=== PATIENT | female | born 1970 | race American Indian/Alaskan Native ===

== ENCOUNTER 2019-02-28 09:02 | Day surgery (SDC) | payer OTHER ==
[~2019-02-28 09:02] MED LIST: NACL 0.9% 1000 ML 1,000 ML IV SCH
[2019-02-28] MEDS ORDERED: DIPRIVAN 10 MG/ML IV ONE ×2 (10:59→11:00)
--- NOTE | 2019-02-28 11:12 | Anesthesia Consultation ---
Anesthesia Consult and Med Hx Date of service: 02/28/19 - Airway Anesthetic Teeth Evaluation: Good ROM Head & Neck: Adequate Mental/Hyoid Distance: Adequate Mallampati Class: Class II Intubation Access Assessment: Good - Pulmonary Exam CTA: Yes - Cardiac Exam Cardiac Exam: RRR - Pre-Operative Health Status ASA Pre-Surgery Classification: ASA2 Proposed Anesthetic Plan: MAC - Cardiovascular System Hx Hypertension: Yes
--- NOTE | 2019-02-28 11:13 | Anesthesia Day of Surgery ---
Anesthesia Day of Surgery - Day of Surgery Patient Examined: Yes Patient H&P Reviewed: Yes Patient is NPO: Yes
--- NOTE | 2019-02-28 11:26 | Short Stay Summary ---
Short Stay Documentation Date of service: 02/28/19 Narrative H&P: The patient presents for her first screening colonoscopy. She has a FH of colon polyps. - History Past Medical History: hypertension Past Surgical History: Other (tubal ligation) Social history: no significant social history, no smoking, no alcohol abuse - Allergies and Medications Current Medications: Allergies peanut Allergy (Intermediate, Verified 02/28/19 10:58) Unknown aspirin Allergy (Verified 02/28/19 10:58) Unknown Sulfa (Sulfonamide Antibiotics) Allergy (Verified 02/28/19 10:58) Swelling Home Medications Medication Instructions Recorded Confirmed Last Taken Type Atenolol 50 mg PO DAILY 02/27/19 02/28/19 02/28/19 History Diclofenac 1% topical gel 1 applicator TRANSDERMA DAILY 02/27/19 02/27/19 Unknown History Fluticasone Propionate 1 spray INNOSTRIL DAILY 02/27/19 02/27/19 Unknown History Ibuprofen 800 mg PO PRN PRN 02/27/19 02/27/19 Unknown History Loratadine 10 mg PO DAILY 02/27/19 02/27/19 Unknown History Losartan-Hctz 100-25 mg Tab 1 tab PO DAILY 02/27/19 02/28/19 02/28/19 History Ranitidine HCl 150 ng PO DAILY 02/27/19 02/28/19 02/27/19 History Sertraline 50 ng PO DAILY 02/27/19 02/28/19 02/27/19 History Trazodone HCl 100 mg PO DAILY 02/27/19 02/27/19 Unknown History Active Medications Sodium Chloride (Nacl 0.9% 1000 Ml) 1,000 mls @ 50 mls/hr IV DIRECT ANDRES Last Admin: 02/28/19 09:55 Dose: 50 mls/hr Documented by: - Physical exam General appearance: no acute distress, well-nourished Integumentary: no rash, no growths, no abnormal pigmentation HEENT: Atraumatic, PERRLA, EOMI, Mucous membr. moist/pink Lungs: Clear to auscultation, Normal air movement Breasts: deferred Heart: Regular rate, Normal S1, Normal S2, No murmurs Gastrointestinal: normoactive bowel sounds, no tenderness, no distended, no masses, no guarding, no organomegaly Female Genitourinary: deferred Rectal Exam: normal exam-external/orifice, no mass Extremities: no ischemia, pulses intact, pulses symmetrical, No edema, normal temperature, normal color, Full ROM Neurological: Normal gait, Normal speech, Strength at 5/5 X4 ext, Normal tone, Sensation intact, Cranial nerves 3-12 NL - Brief post op/procedure progress note Date of procedure: 02/28/19 Findings: see dictated report Estimated blood loss: none Pathology: none Condition: stable - Disposition Condition at discharge: Good Disposition: DC-01 TO HOME OR SELFCARE - Discharge Diagnoses (1) FH: colon polyps Status: Acute Short Stay Discharge Plan Activity: other (no driving for 24 hours) Weight Bearing Status: Weight Bear as Tolerated Diet: regular Follow up with: LLOYD LEE MD [Primary Care Provider] - 7 Days
--- NOTE | 2019-02-28 11:27 | Operative Report ---
Operative Report Operative Report: Date of procedure: 02/28/2019 Preprocedure diagnosis: Family history of colon polyps. No prior studies. Post procedure diagnosis: Normal study. Procedure: Colonoscopy to the cecum Endoscopist: Dr. Mendez Anesthesia: Monitored anesthesia care per anesthesia department Estimated blood loss: 0 Medications: Monitored anesthesia care. See separate report by anesthesia for details. After careful discussion of the nature and purpose of the procedure as well as details of the technique risks benefits and alternatives the patient gave consent. Please see recent history and physical from the office. The patient was placed in the left lateral decubitus position and medicated per anesthesia. A rectal exam was performed sphincter tone was normal there were no masses palpable. The Verixn 570 scope was passed transanally and advanced under continuous direct vision without difficulty to the cecum. The colon was well prepared. The cecum was normal. The ascending colon was normal and on forward and retroflexed views. The transverse colon, descending colon, and sigmoid colon were normal. The rectum was normal on forward and retroflexed views. The procedure was well-tolerated overall and the patient was observed in recovery. Conclusions: Normal colonoscopy to the cecum. Plan: Repeat colonoscopy in 5 years based on family history. Signed electronically: Kavon Mendez M.D.
[2019-02-28] MEDS ORDERED: XYLOCAINE MPF 2% ONE (12:00)
[2019-02-28 12:49] VITALS: BP 140/73
== END 2019-02-28 09:03 | disposition home or self-care (01) ==
LOC: GIO 09:02
PROVIDERS: ATTEND Internal Medicine Gastroenterology
DX: Z12.11 Encounter for screening for malignant neoplasm of colon (principal); I10 Essential (primary) hypertension; Z83.71 Family history of colonic polyps; Z88.6 Allergy status to analgesic agent; Z88.2 Allergy status to sulfonamides; Z91.010 Allergy to peanuts; Z79.899 Other long term (current) drug therapy; Z87.891 Personal history of nicotine dependence; Z98.51 Tubal ligation status; Z98.890 Other specified postprocedural states
CPT/HCPCS: 45378; J2704; J7030